=== PATIENT | male | born 1960 | race African-American/Black ===

== ENCOUNTER → 2018-08-10 11:21 | Outpatient (CLI) | payer BC ==
[2015-03-15 07:10] VITALS: BMI 25.8
[~2018-08-10 11:21] MED LIST: ALTACE10 MG PO; GLUCOPHAGE500 MG PO; MOBIC7.5 MG PO; NORVASC10 MG PO
== END | disposition home or self-care (01) ==
LOC: D.RAD 11:21
DX: M25.562 Pain in left knee (principal)